=== PATIENT | female | born 1990 | race Hispanic/Latino ===

== ENCOUNTER 2018-05-07 21:34 | Emergency (ER) | payer BC, OTHER ==
[2018-05-07 21:34] VITALS: BMI 36.9
[2018-05-07 21:42] VITALS: BP 107/72; PULSE 112; RESP 20; TEMP 98.6; O2SAT 100
[2018-05-07] MEDS ORDERED: Tmp-Smz 800 mg-160 mg DS Tab PO STA (21:55)
[2018-05-07] MEDS ORDERED: Lidocaine 1% Inj (20ml) INFIL STA (21:56)
[2018-05-07] MEDS ORDERED: Tmp-Smz 800 mg-160 mg DS Tab ONE (22:12)
[2018-05-07] MEDS ORDERED: Lidocaine Hydrochloride 10 ML INJ ONE (22:12)
--- NOTE | 2018-05-07 22:30 | C.PDOC ---
History Of Present Illness 27 year old female presents to the ER with a complaint of a painful lump to the right buttock for the past 2 days. Patient states she has a Hx of similar in the past but states she usually pops them. Denies fever. Time Seen by Provider: 05/07/18 21:50 Chief Complaint (Nursing): Abnormal Skin Integrity History Per: Patient History/Exam Limitations: no limitations Onset/Duration Of Symptoms: Days Current Symptoms Are (Timing): Still Present Location Of Injury: Right: Buttock Quality Of Symptoms: Painful (Lump) Recent travel outside of the [place] States: No Past Medical History Reviewed: Historical Data, Nursing Documentation, Vital Signs Vital Signs: Last Vital Signs Temp 98.6 F 05/07/18 21:40 Pulse 112 H 05/07/18 21:40 Resp 20 05/07/18 21:40 BP 107/72 05/07/18 21:40 Pulse Ox 100 05/07/18 23:00 - Medical History PMH: Asthma - [facility] Procedures DELIVERY OF PRODUCTS OF CONCEPTION, EXTERNAL APPROACH (08/09/17) MONITORING OF POC, CARDIAC RATE, LEAD APPLIER APPROACH (08/09/17) REPAIR PERINEUM SKIN, EXTERNAL APPROACH (08/09/17) Family History: States: Unknown Family Hx - Social History Hx Alcohol Use: Yes Hx Substance Use: No Review Of Systems Constitutional: Negative for: Fever, Chills Skin: Positive for: Other (Painful lump to right buttock) Physical Exam - Physical Exam Appears: Non-toxic Skin: Warm, Dry, Other (1x2cm erythematous, tender, fluctant mass to right gluteal area proximal to mackenzie cleft) Head: Atraumatic, Normacephalic Eye(s): bilateral: Normal Inspection Extremity: Normal ROM (x4) Neurological/Psych: Oriented x3, Normal Speech Gait: Steady ED Course And Treatment O2 Sat by Pulse Oximetry: 100 - Incision & Drainage Of Abscess Anesthesia: Lidocaine 1% Prep Used: Sterile Water, Betadine Procedure: Incised W/Scalpel Blade#: (11), Drained Pus, Irrigated Cavity W/ Saline, Probed To Break Up Loculations, Cultures Obtained And Sent To Lab Medical Decision Making Medical Decision Making: Patient tolerated I&D without any difficulty. Patient discharged with proper wound care instructions, antibiotics, and advised to follow up for wound check. Disposition Counseled Patient/Family Regarding: Diagnosis, Need For Followup, Rx Given - Disposition Disposition: HOME/ ROUTINE Disposition Time: 22:29 Condition: GOOD Additional Instructions: Take antibiotic twice a day Take pain medicine as needed Change dressing daily Prescriptions: Sulfamethoxazole/Trimethoprim [Bactrim DS 800 mg-160 mg] 1 tab PO BID #14 tab traMADol [Ultram] 50 mg PO Q8 #10 tab Instructions: Abscess Incision and Drainage (DC) Forms: [employer] (Welsh) - Clinical Impression Clinical Impression: Gluteal abscess - PA / CENTRAL LAB TECHNICIAN / Resident Statement MD/DO has reviewed & agrees with the documentation as recorded. - Scribe Statement The provider has reviewed the documentation as recorded by the Scribpatti Pimentel All medical record entries made by the Darriusibpatti were at my direction and personally dictated by me. I have reviewed the chart and agree that the record accurately reflects my personal performance of the history, physical exam, medical decision making, and the department course for this patient. I have also personally directed, reviewed, and agree with the discharge instructions and disposition.
== END 2018-05-07 22:50 | disposition home or self-care (01) ==
LOC: C.ER 21:34
DX: L02.31 Cutaneous abscess of buttock (principal)

== ENCOUNTER 2018-06-17 08:54 | Emergency (ER) | payer OTHER ==
[2018-06-17 08:54] VITALS: BMI 36.9
[2018-06-17 09:05] VITALS: RESP 20; O2SAT 95
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
[2018-06-17 11:36] VITALS: BP 96/66; PULSE 70; TEMP 97.8
== END 2018-06-17 11:50 | disposition home or self-care (01) ==
LOC: C.ER 08:54
DX: S09.90XA Unspecified injury of head, initial encounter (principal); V49.49XA Driver injured in collision with other motor vehicles in traffic accident, initial encounter; Y92.410 Unspecified street and highway as the place of occurrence of the external cause